=== PATIENT | male | born 1955 | race Caucasian/White ===

== ENCOUNTER 2020-12-09 11:01 | Inpatient (IN) | payer MEDICARE, OTHER ==
[~2020-12-09] VITALS: Ht 175.3 cm; Wt 69.5 kg
[2020-12-09 11:27] LABS: BASOPHIL 0.3 % (0-2); EOSINOPHIL 0.2 % (0-7); HCT 30.7 % (42.0-52.0); HGB 9.2 g/dl (13.2-18.0); LYMPHOCYTE 10.6 % (15-48); MCH 26.4 pg (25.0-31.0); MCV 88.2 fL (78.0-100.0); MPV 9.6 fL (6.0-9.5); NEUTROPHIL 83.4 % (41-80); NRBC 0; PLT 443 K/uL (150-400); RBC 3.48 M/uL (4.70-6.00); RDW 17.8 % (11.5-14.0); WBC 15.5 K/uL (4.0-10.5)
[2020-12-09 11:49] LABS: ALBUMIN 2.4 g/dL (3.4-5.0); BILIRUBIN - TOTAL 0.4 mg/dL (0.2-1.0); CREATININE 0.61 mg/dL (0.67-1.17); GLOBULIN (CALCULATION) 3.8 g/dL; POTASSIUM 3.9 mmol/L (3.5-5.1); TOTAL PROTEIN 6.2 g/dL (6.4-8.2)
[2020-12-09 14:16] LABS: BILIRUBIN NEGATIVE (NEGATIVE); BLOOD NEGATIVE Ery/uL (NEGATIVE); CLARITY CLEAR (CLEAR); COLOR YELLOW (YELLOW); GLUCOSE (U) NORMAL (NORMAL); LEUKOCYTES NEGATIVE Leu/uL (NEGATIVE); NITRITE NEGATIVE (NEGATIVE); PROTEIN 1+ mg/dL (NEGATIVE)
[2020-12-09 14:25] LABS: SQUAMOUS EPITHELIAL CELLS RARE; URINARY WBC RARE
[2020-12-09 14:57] LABS: INR 2.08 (0.9-1.2); PROTHROMBIN TIME 22.5 SECONDS (11.8-13.4)
[2020-12-09 17:17] LABS: LACTIC ACID 1.7 mmol/L (0.4-1.9)
[2020-12-09] MEDS ORDERED: PAXIL30 MG PO (17:23)
[2020-12-09] MEDS ORDERED: WARFARIN SODIU2.5 MG PO (17:24)
[2020-12-09] MEDS ORDERED: PLAVIX75 MG PO (17:24)
[2020-12-09] MEDS ORDERED: WARFARIN SODIUM1 MG PO (17:25)
[2020-12-09] MEDS ORDERED: COLACE100 M1 PO (17:27)
[2020-12-09] MEDS ORDERED: PRILOSEC20 MG PO (17:28)
[2020-12-09] MEDS ORDERED: LIPITOR40 MG PO (17:28)
[2020-12-09] MEDS ORDERED: REMERON15 MG PO (17:28)
[2020-12-10 05:36] LABS: BASOPHIL 0.6 % (0-2); EOSINOPHIL 0.9 % (0-7); HCT 28.6 % (42.0-52.0); HGB 8.7 g/dl (13.2-18.0); LYMPHOCYTE 17.1 % (15-48); MCH 26.5 pg (25.0-31.0); MCHC 30.4 g/dL (32.0-36.0); MCV 87.2 fL (78.0-100.0); MONOCYTE 6.5 % (0-12); MPV 9.6 fL (6.0-9.5); NEUTROPHIL 74.3 % (41-80); NRBC 0; PLT 395 K/uL (150-400); RBC 3.28 M/uL (4.70-6.00); WBC 12.3 K/uL (4.0-10.5)
[2020-12-10 05:57] LABS: BUN/CREAT RATIO (CALC) 26.4 RATIO; CREATININE 0.53 mg/dL (0.67-1.17); POTASSIUM 3.6 mmol/L (3.5-5.1)
[2020-12-11 05:45] LABS: BASOPHIL 0.3 % (0-2); EOSINOPHIL 0.1 % (0-7); HCT 27.6 % (42.0-52.0); HGB 8.5 g/dl (13.2-18.0); LYMPHOCYTE 13.9 % (15-48); MCH 26.6 pg (25.0-31.0); MCHC 30.8 g/dL (32.0-36.0); MCV 86.5 fL (78.0-100.0); MONOCYTE 6.6 % (0-12); MPV 9.6 fL (6.0-9.5); NEUTROPHIL 78.5 % (41-80); NRBC 0; PLT 441 K/uL (150-400); RBC 3.19 M/uL (4.70-6.00); RDW 17.7 % (11.5-14.0); WBC 11.4 K/uL (4.0-10.5)
[2020-12-11 05:51] LABS: INR 2.75 (0.9-1.2); PROTHROMBIN TIME 28.1 SECONDS (11.8-13.4)
[2020-12-11 06:03] LABS: BUN/CREAT RATIO (CALC) 18.8 RATIO; CREATININE 0.64 mg/dL (0.67-1.17); POTASSIUM 3.2 mmol/L (3.5-5.1); VANCOMYCIN, TROUGH 12.5 ug/mL (10-20)
[2020-12-12 05:10] LABS: BASOPHIL 0.2 % (0-2); EOSINOPHIL 0 % (0-7); HGB 8.5 g/dl (13.2-18.0); LYMPHOCYTE 16.1 % (15-48); MCH 26.4 pg (25.0-31.0); MCHC 30.4 g/dL (32.0-36.0); MPV 9.6 fL (6.0-9.5); NEUTROPHIL 76.1 % (41-80); NRBC 0; PLT 433 K/uL (150-400); RBC 3.22 M/uL (4.70-6.00); RDW 18.2 % (11.5-14.0); WBC 13.1 K/uL (4.0-10.5)
[2020-12-12 05:23] LABS: PROTHROMBIN TIME 30.1 SECONDS (11.8-13.4)
[2020-12-12 05:33] LABS: BUN/CREAT RATIO (CALC) 30.4 RATIO; CREATININE 0.69 mg/dL (0.67-1.17); POTASSIUM 4.2 mmol/L (3.5-5.1)
[2020-12-12] MEDS ORDERED: ASPIRIN EC81 MG PO (12:46)
[2020-12-12] MEDS ORDERED: LEVAQUIN500 MG PO (12:46)
[2020-12-12] MEDS ORDERED: AMIODARONE HCL200 MG PO (12:46)
[2020-12-12] MEDS ORDERED: CARDIZEM CD120 MG PO (12:46)
[2020-12-12] MEDS ORDERED: ACETAMINOPHEN325 MG PO (16:24)
[2020-12-12] MEDS ORDERED: JANTOVEN1 MG PO (16:24)
[2020-12-12] MEDS ORDERED: LOPRESSOR50 MG PO (16:24)
[2020-12-12] MEDS ORDERED: LASIX20 MG PO (16:24)
[2020-12-12] MEDS ORDERED: METFORMIN HCL500 M3 PO (16:27)
[2020-12-12] MEDS ORDERED: DUONEB 2.5-0.5M1 AMP NEB (16:30)
[2020-12-12] MEDS ORDERED: SPIRIVA 18MCG18 MCG INH (16:30)
[2020-12-13 06:10] LABS: RETICULOCYTE COUNT 3.1 % (1.0-2.0)
[2020-12-13 06:20] LABS: INR 2.55 (0.9-1.2); PROTHROMBIN TIME 26.5 SECONDS (11.8-13.4)
[2020-12-13 06:28] LABS: IRON % SATURATION 17.6 %SAT (20-50)
[2020-12-13 06:54] LABS: BUN/CREAT RATIO (CALC) 34.3 RATIO; CREATININE 0.67 mg/dL (0.67-1.17); FOLIC ACID (SERUM) 2.6 ng/mL (8.6-58.9); MAGNESIUM 1.6 mg/dL (1.8-2.4); POTASSIUM 4.3 mmol/L (3.5-5.1)
[2020-12-13] MEDS ORDERED: FERROUS FUMARA324 MG PO (07:31)
[2020-12-13] MEDS ORDERED: LANTUS100 UNIT/1 SC (07:31)
== END 2020-12-13 15:00 | DRG 871 ==
LOC: FER 11:01 → FTCU 14:30 → FMS 12-12 08:23
PROVIDERS: Emergency Medicine; Internal Medicine; Internal Medicine Clinical Cardiac Electrophysiology; ADMIT Allergy & Immunology Allergy
DX: A41.9 Sepsis, unspecified organism (principal); I50.33 Acute on chronic diastolic (congestive) heart failure; I21.4 Non-ST elevation (NSTEMI) myocardial infarction; E11.52 Type 2 diabetes mellitus with diabetic peripheral angiopathy with gangrene; I48.0 Paroxysmal atrial fibrillation; Z20.822 Contact with and (suspected) exposure to COVID-19; E11.621 Type 2 diabetes mellitus with foot ulcer; M20.41 Other hammer toe(s) (acquired), right foot; L97.521 Non-pressure chronic ulcer of other part of left foot limited to breakdown of skin; K21.9 Gastro-esophageal reflux disease without esophagitis; J44.9 Chronic obstructive pulmonary disease, unspecified; E11.65 Type 2 diabetes mellitus with hyperglycemia; I25.10 Atherosclerotic heart disease of native coronary artery without angina pectoris; E78.5 Hyperlipidemia, unspecified; Z98.890 Other specified postprocedural states; Z95.5 Presence of coronary angioplasty implant and graft; Z87.11 Personal history of peptic ulcer disease
CPT/HCPCS: 36415; 36600; 71045; 71046; 73620; 80048; 80053; 80061; 80202; 81001; 82607; 82728; 82746; 82803; 82962; 83036; 83540; 83550; 83605; 83735; 83880; 84145; 84443; 84484; 85025; 85610; 87040; 93005; 93922; 94010; 94640; 94660; 94667; 94668; 94760; 97110; 97162; 97166; 97530; 97530-GP; 97535; G0378; J0282; J0360; J1940; J2543; J3370; J7030; J7050; J7060; J7120; J7512; U0002

== ENCOUNTER 2021-05-05 13:03 | Emergency (ER) | payer MEDICARE, OTHER ==
[~2021-05-05 13:03] MED LIST: ACETAMINOPHEN325 MG PO; AMIODARONE HCL200 MG PO; ASPIRIN EC81 MG PO; CARDIZEM CD120 MG PO; COLACE100 M1 PO; DUONEB 2.5-0.5M1 AMP NEB; FERROUS FUMARA324 MG PO; JANTOVEN1 MG PO; LANTUS100 UNIT/1 SC; LASIX20 MG PO; LEVAQUIN500 MG PO; LIPITOR40 MG PO; LOPRESSOR50 MG PO; METFORMIN HCL500 M3 PO; PAXIL30 MG PO; PLAVIX75 MG PO; PRILOSEC20 MG PO; REMERON15 MG PO; SPIRIVA 18MCG18 MCG INH; WARFARIN SODIU2.5 MG PO; WARFARIN SODIUM1 MG PO
[2021-05-05 14:10] LABS: BASOPHIL 0.3 % (0-2); EOSINOPHIL 1.1 % (0-7); HCT 29.9 % (42.0-52.0); HGB 9.1 g/dl (13.2-18.0); LYMPHOCYTE 15.4 % (15-48); MCH 28.7 pg (25.0-31.0); MCHC 30.4 g/dL (32.0-36.0); MCV 94.3 fL (78.0-100.0); MONOCYTE 8.4 % (0-12); MPV 9.5 fL (6.0-9.5); NRBC 0; PLT 356 K/uL (150-400); RBC 3.17 M/uL (4.70-6.00); RDW 15.8 % (11.5-14.0); WBC 11.5 K/uL (4.0-10.5)
[2021-05-05 14:24] LABS: ALBUMIN 2.7 g/dL (3.4-5.0); BILIRUBIN - TOTAL 0.3 mg/dL (0.2-1.0); BUN/CREAT RATIO (CALC) 17.7 RATIO; CREATININE 0.62 mg/dL (0.67-1.17); GLOBULIN (CALCULATION) 3.8 g/dL; POTASSIUM 3.9 mmol/L (3.5-5.1); TOTAL PROTEIN 6.5 g/dL (6.4-8.2)
[2021-05-05 16:08] LABS: CORONAVIRUS 2019 SARS-COV-2 NEGATIVE (NEGATIVE); INFLUENZA A NAA NEGATIVE (NEGATIVE)
[2021-05-05] MEDS ORDERED: KLOR-CON 1010 MEQ PO ×2 (16:51→16:52)
[2021-05-05] MEDS ORDERED: LASIX20 MG PO (16:51)
== END 2021-05-05 17:10 | disposition home or self-care (01) ==
LOC: FER 13:03
PROVIDERS: Internal Medicine; Nurse Practitioner Family
DX: I11.0 Hypertensive heart disease with heart failure (principal); I50.9 Heart failure, unspecified; J44.9 Chronic obstructive pulmonary disease, unspecified; E11.9 Type 2 diabetes mellitus without complications; Z20.822 Contact with and (suspected) exposure to COVID-19
CPT/HCPCS: 36415; 36600; 71045; 80053; 82803; 83880; 84484; 85025; 93005; 94640; 94664; J1100; J1940; U0002